=== PATIENT | male | born 1945 | race Caucasian/White ===

== ENCOUNTER 2020-03-25 05:38 | Inpatient (IN) | payer MEDICARE, BC ==
[2020-03-25] VITALS (15 sets, daily range): BP systolic 110–128; BP diastolic 33–74
[~2020-03-25] VITALS: Ht 175.3 cm; Wt 73.9 kg
[~2020-03-25 05:38] MED LIST: KEPPRA1000 MG ORAL; RAPAFLO8 MG ORAL; SYNTHROID150 MCG ORAL
[2020-03-25] MEDS ORDERED: Meperidine 25mg/1ml Inj (FOR RIGORS ONLY) IV PRN (07:30)
[2020-03-25] MEDS ORDERED: Metoclopramide 10mg/2ml Inj IVP PRN (07:30)
[2020-03-25] MEDS ORDERED: LORazepam Inj 2mg/ml 1ml IV PRN (07:30)
[2020-03-25] MEDS ORDERED: HYDROcodone/Acetamin 7.5/325 tab ORAL PRN (07:30)
[2020-03-25] MEDS ORDERED: Labetalol 5mg/ml 20ml vial IV PRN (07:30)
[2020-03-25] MEDS ORDERED: Acetaminophen (Non formulary) 100 ML IV ONE (07:30)
[2020-03-25] MEDS ORDERED: HYDROcodone/Acetamin 5/325 tab ORAL PRN (07:30)
[2020-03-25] MEDS ORDERED: Atropine Sulfate 0.4mg/ml inj IVP PRN (07:30)
[2020-03-25] MEDS ORDERED: oxyCODONE HCL/Acetaminophen 5/325mg ORAL PRN (07:30)
[2020-03-25] MEDS ORDERED: Midazolam 2mg/2ml Inj IVP PRN (07:30)
[2020-03-25] MEDS ORDERED: fentaNYL 100 mcg/2 mL IV PRN (07:30)
[2020-03-25] MEDS ORDERED: Ketorolac 30mg Inj IV PRN ×2 (07:30)
[2020-03-25] MEDS ORDERED: Sterile Water Irrig 1000ml IRRIG ONE (07:30)
[2020-03-25] MEDS ORDERED: LR 1000ml 1,000 ML IVLG SCH (07:30)
[2020-03-25] MEDS ORDERED: LR 1000ml ONE (07:30)
[2020-03-25] MEDS ORDERED: DiphenhydrAMINE 50mg/ml Inj IVP PRN (07:30)
--- NOTE | 2020-03-25 07:31 | Anethesia Preoperative Eval ---
Anesthesia Pre-op PMH/ROS General Date of Evaluation: Mar 25, 2020 Time of Evaluation: 07:21 Anesthesiologist: Kylie ASA Score: ASA 3 Mallampati Score Class I : Soft palate, uvula, fauces, pillars visible Class II: Soft palate, uvula, fauces visible Class III: Soft palate, base of uvula visible Class IV: Only hard plate visible Mallampati Classification: Class II Surgeon: Shania Diagnosis: R Kidney Pain Surgical Procedure: R Lparoscopic Nephrectomy Anesthesia History: none Family History: no anesthesia problems Allergies: Coded Allergies: No Known Allergies (Unverified , 03/25/20) Medications: see eMAR Patient NPO?: Yes Past Medical History Neurologic/Psychiatric: Reports: other - Seizures Endocrine: Reports: hypothyroidism Hematology/Immune: Reports: other - Lung CA PSxH Narrative: R and L Lobectomy Anesthesia Pre-op Phys. Exam Physician Exam Last Vital Signs Date Time Temp Pulse Resp B/P (MAP) Pulse Ox O2 Delivery O2 Flow Rate FiO2 03/25/20 06:09 97.0 76 20 123/74 97 Room Air Constitutional: NAD Neurologic: CN 2-12 intact Cardiovascular: RRR Respiratory: CTA Gastrointestinal: S/NT/ND Airway Exam Mallampati Score: Class II MO: full ROM: limited Teeth: missing, intact Anesthesia Pre-op A/P Risk Assessment & Plan Assessment: ASA 3 Plan: GA, SED, GlideScope Status Change Before Surgery: No Pre-Antibiotics Dru Gram Ancef IV Given Within 1 Hr of Incision: Yes Time Given: 07:46 Jovan Espinal MD Mar 25, 2020 07:31
[2020-03-25] MEDS ORDERED: Bupivacaine 0.5% Inj 30 ml vial INJ ONE (07:33)
[2020-03-25] MEDS ORDERED: Sodium Chloride 10ml vial INJ ONE (07:33)
[2020-03-25] MEDS ORDERED: Ketamine 500mg/10ml vial ONE (07:34)
--- NOTE | 2020-03-25 07:35 | Pre-Procedure Note/Attestation ---
Pre-Procedure Note/Attestation Complete Prior to Procedure Planned Procedure: left Procedure Narrative: Right Partial Nephrectomy Laparoscopic Indications for Procedure Pre-Operative Diagnosis: Right renal mass Attestation I attest that I discussed the nature of the procedure; its benefits; risks and complications; and alternatives (and the risks and benefits of such alternatives), prior to the procedure, with the patient (or the patient's legal advertising account representative). I attest that, if there was a reasonable possibility of needing a blood transfusion, the patient (or the patient's legal advertising account representative) was given the [facility] standardized written summary, pursuant to the [place] Blood Safety Act ([place] Health and Safety Code # 1645, as amended). I attest that I re-evaluated the patient just prior to the surgery and that there has been no change in the patient's H&P, except as documented below: Ricci Jauregui MD Mar 25, 2020 07:35
[2020-03-25] MEDS ORDERED: NS Irrig 1000ml IRRIG ONE (08:22)
--- NOTE | 2020-03-25 08:36 | Immediate Post-Op Evaluation ---
Immediate Post-Op Evalulation Immediate Post-Op Evalulation Procedure: R Laparoscopic Partial Nephrectomy Date of Evaluation: Mar 25, 2020 Time of Evaluation: 10:47 IV Fluids: 1000 LR Blood Products: 0 Estimated Blood Loss: 1000 Urinary Output: 200 Blood Pressure Systolic: 124 Blood Pressure Diastolic: 64 Pulse Rate: 96 Respiratory Rate: 18 O2 Sat by Pulse Oximetry: 100 Temperature (Fahrenheit): 97.6 Pain Score (1-10): 2 Nausea: No Vomiting: No Complications 0 Patient Status: awake, reacts, patent, extubated, none Hydration Status: adequate Dru Gram Ancef IV Given Within 1 Hr of Incision: Yes Time Given: 07:46 Jovan Espinal MD Mar 25, 2020 08:36
[2020-03-25] MEDS ORDERED: Neostigmine 1mg/ml 10ml Inj ONE (08:43)
[2020-03-25] MEDS ORDERED: Glycopyrrolate 0.2mg/ml 1ml Vial ONE (08:43)
[2020-03-25] MEDS ORDERED: ceFAZolin sod 1 GM in NS 55 ML IVPB ONE (09:00)
--- NOTE | 2020-03-25 10:17 | Brief Operative Note ---
Immediate Post Operative Note Operative Note Pre-op Diagnosis: Right renal mass Procedure: Right partial nephrectomy Post-op Diagnosis: same Post-op Diagnosis: same as pre-op Surgeon: Richard jauregui Director Immunology: tracy faulkner Anesthesia: general Specimen: yes Complications: none Condition: stable Fluids: 1000 Estimated Blood Loss: minimal Implant(s) used?: No Ricci Jauregui MD Mar 25, 2020 10:17
[2020-03-25] MEDS: Hydromorphone 0.5mg/0.5ml inj IVP PRN ×2 (10:52→11:20)
[2020-03-25 11:02] LABS: HEMOGLOBIN 11.5 G/DL (14.2-18.0); MEAN CORPUSCULAR VOLUME 98 FL (80-99); PLATELET COUNT 225 K/UL (150-450); RED BLOOD COUNT 3.58 M/UL (4.70-6.10); RED CELL DISTRIBUTION WIDTH 13.6 % (11.6-14.8); WHITE BLOOD COUNT 21.9 K/UL (4.8-10.8)
[2020-03-25 11:08] LABS: CALCIUM 8.5 MG/DL (8.5-10.1); CREATININE 1.4 MG/DL (0.55-1.30); POTASSIUM 4.1 MMOL/L (3.5-5.1)
--- NOTE | 2020-03-25 12:05 | NUR ---
NURSE NOTES: Patient received from PACU via bed to room 411-1 on O2 3LNC, in stable condition, sleeping, awakens easily, then falls asleep. Report from Aileen BINGHAM. Oriented patient to room, medical equipment and call light. Abdomen x4 areas with steri strips, CDI. FC in place, patent, y/cl urine. NPO, ice chips provided. IV (LR ) to , site asymptomatic. Bilateral SCDs on. Belongings reviewed with Mark BINGHAM. Signs placed above HOB (DO NOT DC MORTENSEN and NOTHING PER RECTUM). Called RT for IS. Call light in reach, bed in lowest position, will continue to monitor.
--- NOTE | 2020-03-25 13:00 | NUR ---
NURSE NOTES: Seizure pads applied to siderails x2.
[2020-03-25] MEDS: HYDROmorphone 1mg/ml Carpuject IVP PRN ×2 (13:57→18:54)
--- NOTE | 2020-03-25 14:00 | NUR ---
NURSE NOTES: Dr. Jauregui at bedside, orders for patient to remain on bedrest for today, then PT evaluation tomorrow.Will follow as ordered.
[2020-03-25] MEDS: D5 1/2NS w/KCl 20mEq 1,000 ML IV SCH ×2 (14:13→23:49)
[2020-03-25] MEDS ORDERED: ceFAZolin sod 2 GM in D5W 110 ML IV SCH (15:30)
[2020-03-25] MEDS: ceFAZolin 2gm/D5W 50ml Premix IV SCH ×2 (15:53→23:49)
--- NOTE | 2020-03-25 17:45 | NUR ---
NURSE NOTES: Received call from Dr. Jauregui, home medications reconciled, orders to start RAPAFLO tonight only, then resume all other home medications (KEPPRA/SYNTHROID) tomorrow. Will follow as ordered. Addendum: 03/25/20 at 1902 by Clair Mcgregor RN Reviewed post op lab results with Dr. Jauregui.
--- NOTE | 2020-03-25 18:45 | NUR ---
NURSE NOTES: Instructed/demonstrated on IS, returns demonstration correctly, able to inspire [address] Jauregui notified of urine output (FC) 250 ml. No further orders.
[2020-03-25] MEDS: Docusate 100mg cap ORAL SCH (18:48)
--- NOTE | 2020-03-25 19:34 | NUR ---
NURSE HAND-OFF: Important Events on Shift:POST OP at 1205, Remain on BR for today, Only resume RAPAFLO tonight, NPO, monitor neumann output (Dr. Jauregui aware, 250 ml) Patient Status: stable Diet: NPO (ice chips/sips with meds) Pending Orders: Labs AM Pending Results/Labs:CBC BMP 03/26 Pending MD notification:none Latest Vital Signs: Temperature 97.1 , Pulse 98 , B/P 117 /66 , Respiratory Rate 16 , O2 SAT 99 , Nasal Cannula, O2 Flow Rate 3 . Vital Sign Comment: none Latest Pacheco Fall Score: 35 Fall Risk: Medium Risk Safety Measures: Call light Within Reach, Bed Alarm , Side Rails Side Rails x2, Bed position Low and Locked. Fall Precautions: Yellow Socks Door Sign Patient Fall Education Report given to Sangeeta BINGHAM. Addendum: 03/25/20 at 2001 by Clair Mcgregor RN Medicated with Dilaudid 1 mg x2.
--- NOTE | 2020-03-25 19:37 | NUR ---
NURSE NOTES: Received report & pt from ZACHERY Mercedes. Pt in bed, a&xo4, on O2 vi NC @ 3LPM. No s/s of acute distress & c/o 7/10 pain at this time. Will give PRN pain med when due & pt verbalized understanding. Neumann intact. Do not D/C neumann & nothing per rectum signs on. IV site intact with IVF running as ordered. Bed in lowest position, call light within reach. Will continue to monitor.
[2020-03-25] MEDS ORDERED: Tamsulosin 0.4mg cap ORAL SCH (21:00)
[2020-03-26] VITALS (7 sets, daily range): BP systolic 110–149; BP diastolic 56–72
--- NOTE | 2020-03-26 | NUR ---
NURSE NOTES: Pt in no acute distress. Titrated O2 to 1LPM via NC since current SpO2 is 99%. Will continue to monitor.
[2020-03-26] MEDS: HYDROmorphone 1mg/ml Carpuject IVP PRN ×3 (05:07→13:08)
--- NOTE | 2020-03-26 06:09 | NUR ---
NURSE NOTES: Updated Dr. Jauregui with pt's current status re: Pt states he is able to sleep well with the sleeping pill given last night. Gave pain medication dilaudid for 8/10 pain when not moving; will reassess. Urine output via f/c is 700ml clear yellow output. Received new order for Ancef 1g Q8HR. Order entered.
[2020-03-26 06:31] LABS: BASOPHILS % (AUTO) 0.5 % (0.0-2.0); HEMATOCRIT 27.7 % (42.0-52.0); HEMOGLOBIN 9.3 G/DL (14.2-18.0); LYMPHOCYTES % (AUTO) 11.2 % (20.0-45.0); MEAN CORPUSCULAR VOLUME 97 FL (80-99); MONOCYTES % (AUTO) 12.4 % (1.0-10.0); NEUTROPHILS % (AUTO) 75.9 % (45.0-75.0); PLATELET COUNT 188 K/UL (150-450); RED BLOOD COUNT 2.86 M/UL (4.70-6.10); RED CELL DISTRIBUTION WIDTH 13.4 % (11.6-14.8); WHITE BLOOD COUNT 13.3 K/UL (4.8-10.8)
--- NOTE | 2020-03-26 06:38 | NUR ---
NURSE HAND-OFF: Important Events on Shift:pain management, iv hydration, neumann output 700cc, new order for restoril Patient Status: stable Diet: NPO Pending Orders: PT eval today Pending Results/Labs:none Pending MD notification: Latest Vital Signs: Temperature 98.7 , Pulse 84 , B/P 115 /57 , Respiratory Rate 17 , O2 SAT 98 , Nasal Cannula, O2 Flow Rate 3.0 . Vital Sign Comment: none Latest Pacheco Fall Score: 35 Fall Risk: Medium Risk Safety Measures: Call light Within Reach, Bed Alarm , Side Rails Side Rails x2, Bed position Low and Locked. Fall Precautions: Yellow Socks Door Sign Patient Fall Education Report given to ZACHERY Self.
[2020-03-26 07:04] LABS: CALCIUM 8.2 MG/DL (8.5-10.1); CREATININE 1.7 MG/DL (0.55-1.30); POTASSIUM 4.5 MMOL/L (3.5-5.1)
--- NOTE | 2020-03-26 07:20 | NUR ---
NURSE NOTES: Report received from Sangeeta BINGHAM, rounds made. Patient resting in semi-fowlers position in bed. AOx4, calm. On RA, respirations even, unlabored. IVF D5 1/2 +20 KCL at 100 ml/hr to LH, site asymptomatic. Abdominal dressing, remains unchanged, x4 steri-strips, CDI, abdomen soft, flat. Denies need for pain medication at this time. Instructed patient to use IS with pillow to abdomen to splint surgical sites, verbalized understanding. Seizure pads in place. FC patent y/cl urine to gravity. Bilateral SCDs on. Remains NPO, ice chips provided. Plans for PT eval today. Call light in reach, bed in lowest position, will continue to monitor.
[2020-03-26] MEDS: Docusate 100mg cap ORAL SCH ×2 (08:55→18:31)
[2020-03-26] MEDS: D5 1/2NS w/KCl 20mEq 1,000 ML IV SCH ×2 (09:11→20:54)
--- NOTE | 2020-03-26 09:44 | NUR ---
NURSE NOTES: Seen and evaluated by and Enrique removed. Received new order. Order read back and carried out.
--- NOTE | 2020-03-26 10:00 | NUR ---
PT EVALUATION NOTE Patient seen for initial evaluation and treatment initiated. Patient presents with generalized weakness and pain s/p Right partial nephrectomy. Patient requires CGA for bed mobility and transfers. Patient able to ambulate 50 ft with CGA, no AD, slowed pace and guarded. Patient will benefit from skilled inpatient PT intervention to improve level of functional mobility, safety and activity tolerance. Anticipate discharge home once medically cleared by MD. Addendum: 03/26/20 at 1228 by STAN BAEZ PT Amended: Links added.
--- NOTE | 2020-03-26 10:15 | NUR ---
NURSE NOTES: Patient updated on orders for Bolus x1, verbalized understanding. NS 500 ml Bolus started at this time.
--- NOTE | 2020-03-26 10:33 | 48 Hour Post Anesthesia Eval ---
Post Anesthesia Evaluation Procedure: R Laparoscopic Partial Nephrectomy Date of Evaluation: Mar 26, 2020 Time of Evaluation: 10:32 Blood Pressure Systolic: 116 0: 72 Pulse Rate: 68 Respiratory Rate: 20 Temperature (Fahrenheit): 97.6 O2 Sat by Pulse Oximetry: 98 Airway: patent Nausea: No Vomiting: No Pain Intensity: 3 Hydration Status: adequate Cardiopulmonary Status: stable Mental Status/LOC: patient returned to baseline Follow-up Care/Observations: n/a Post-Anesthesia Complications: none Follow-up care needed: N/A Issac Mclain MD Mar 26, 2020 10:33
--- NOTE | 2020-03-26 10:38 | Consultation ---
History of Present Illness General Date patient seen: Mar 26, 2020 Present Illness HPI This is a very pleasant 74-year-old male with a right renal mass status post right partial nephrectomy who in the postoperative period identified to have leukocytosis abdominal discomfort. Surgery called to evaluate assist with care. Patient seen, patient evaluate, chart reviewed. Mild bowel distention abdominal discomfort 4 out of 10 trying not to take pain medications. No flatus no bowel movement yet. Has not been amatory. Nunez in place. Nunez clear. Alert awake oriented x3. No nausea no reflux no vomiting. Otherwise feeling well. Allergies: Coded Allergies: No Known Allergies (Unverified , 03/25/20) COVID-19 Screening Contact w/high risk pt: No Experienced COVID-19 symptoms?: No Medication History Scheduled Levetiracetam (Keppra), 2,000 MG ORAL BID, (Reported) Levothyroxine Sodium* (Synthroid*), 150 MCG ORAL DAILY, (Reported) Silodosin (Rapaflo), 8 MG ORAL DAILY, (Reported) Patient History History Provided By: Patient, Medical Record, PMD Healthcare decision maker Resuscitation status Advanced Directive on File Past Medical/Surgical History Past Medical/Surgical History: (1) Abdominal distention (2) LAPAROSCOPIC RIGHT PARTIAL NEPHRECTOMY Review of Systems Review of Symptoms General ROS: no weight loss or fever Psychological ROS: no depression or mood changes, no memory loss Ophthalmic ROS: no visual changes or eye irritation ENT ROS: no nasal congestion, hearing loss, dizziness Allergy and Immunology ROS: no allergic symptoms or urticaria Hematological and Lymphatic ROS: no swollen glands, unusual bleeding or bruising Endocrine ROS: no polyuria, polydipsia, weight changes, temperature intolerance Respiratory ROS: no cough, shortness of breath, or wheezing Cardiovascular ROS: no chest pain or dyspnea on exertion Gastrointestinal ROS: denies abdominal pain, bright red blood in stool. Musculoskeletal ROS: no myalgias or arthralgias Neurological ROS: no TIA or stroke symptoms Dermatological ROS: no new or changing skin lesions, rashes or pruritis Physical Exam Physical Exam General appearance: alert, cooperative, no distress, appears stated age Head: Normocephalic, without obvious abnormality, atraumatic Eyes: conjunctivae/corneas clear. PERRL, EOM's intact. Fundi benign Throat: Lips, mucosa, and tongue normal. Teeth and gums normal Neck: supple, symmetrical, trachea midline, no adenopathy, thyroid: not enlarged, symmetric, no tenderness/mass/nodules, no carotid bruit and no JVD Lungs: clear to auscultation bilaterally Heart: regular rate and rhythm, S1, S2 normal, no murmur, click, rub or gallop Abdomen: soft, minimal distention bowel gas pattern decreased non-tender. Bowel sounds normal. No masses, no organomegaly Extremities: extremities normal, atraumatic, no cyanosis or edema Pulses: 2+ and symmetric Skin: Skin color, texture, turgor normal. No rashes or lesions Neurologic: Grossly normal Last 24 Hour Vital Signs Date Time Temp Pulse Resp B/P (MAP) Pulse Ox O2 Delivery O2 Flow Rate FiO2 03/26/20 08:00 98.2 94 18 110/58 (75) 97 03/26/20 04:00 98.7 84 17 115/57 (76) 98 03/26/20 00:00 98.2 84 16 110/56 (74) 99 03/25/20 21:00 Nasal Cannula 3.0 03/25/20 20:00 98.5 99 19 117/57 (77) 98 03/25/20 16:00 97.1 98 16 117/66 (83) 99 03/25/20 13:10 97.0 96 16 115/69 (84) 98 03/25/20 12:40 97.8 100 16 115/71 (86) 99 03/25/20 12:22 Nasal Cannula 3.0 03/25/20 12:10 97.4 98 16 115/72 (86) 99 03/25/20 11:50 97.9 92 15 128/56 100 Nasal Cannula 3 03/25/20 11:50 97.9 03/25/20 11:35 91 18 125/52 100 Nasal Cannula 3 03/25/20 11:22 97.9 03/25/20 11:22 97.9 03/25/20 11:20 85 15 127/54 100 Simple Mask 6 03/25/20 11:10 81 19 127/48 100 Simple Mask 6 03/25/20 10:58 75 15 128/52 100 Simple Mask 6 03/25/20 10:48 82 15 121/33 100 Simple Mask 6 03/25/20 10:38 90 14 126/39 100 Simple Mask 6 Intake and Output 03/25/20 03/26/20 19:00 07:00 Intake Total 2400 ml 1100 ml Output Total 1650 ml Balance 750 ml 1100 ml Intake IV Total 2400 ml 1100 ml Output Urine Total 650 ml Estimated Blood Loss 1000 ml # Voids 2 Laboratory Tests Test 03/25/20 10:45 03/26/20 05:20 White Blood Count 21.9 K/UL (4.8-10.8) H 13.3 K/UL (4.8-10.8) H Red Blood Count 3.58 M/UL (4.70-6.10) L 2.86 M/UL (4.70-6.10) L Hemoglobin 11.5 G/DL (14.2-18.0) L 9.3 G/DL (14.2-18.0) L Hematocrit 35.0 % (42.0-52.0) L 27.7 % (42.0-52.0) L Mean Corpuscular Volume 98 FL (80-99) 97 FL (80-99) Mean Corpuscular Hemoglobin 32.1 PG (27.0-31.0) H 32.3 PG (27.0-31.0) H Mean Corpuscular Hemoglobin Concent 32.8 G/DL (32.0-36.0) 33.4 G/DL (32.0-36.0) Red Cell Distribution Width 13.6 % (11.6-14.8) 13.4 % (11.6-14.8) Platelet Count 225 K/UL (150-450) 188 K/UL (150-450) Mean Platelet Volume 6.1 FL (6.5-10.1) L 6.1 FL (6.5-10.1) L Neutrophils (%) (Auto) % (45.0-75.0) 75.9 % (45.0-75.0) H Lymphocytes (%) (Auto) % (20.0-45.0) 11.2 % (20.0-45.0) L Monocytes (%) (Auto) % (1.0-10.0) 12.4 % (1.0-10.0) H Eosinophils (%) (Auto) % (0.0-3.0) 0.0 % (0.0-3.0) Basophils (%) (Auto) % (0.0-2.0) 0.5 % (0.0-2.0) Differential Total Cells Counted 100 Neutrophils % (Manual) 90 % (45-75) H Lymphocytes % (Manual) 8 % (20-45) L Monocytes % (Manual) 2 % (1-10) Eosinophils % (Manual) 0 % (0-3) Basophils % (Manual) 0 % (0-2) Band Neutrophils 0 % (0-8) Platelet Estimate Adequate Platelet Morphology Normal Red Blood Cell Morphology Normal Sodium Level 144 MMOL/L (136-145) 142 MMOL/L (136-145) Potassium Level 4.1 MMOL/L (3.5-5.1) 4.5 MMOL/L (3.5-5.1) Chloride Level 108 MMOL/L (98-107) H 109 MMOL/L (98-107) H Carbon Dioxide Level 26 MMOL/L (21-32) 29 MMOL/L (21-32) Anion Gap 10 mmol/L (5-15) 5 mmol/L (5-15) Blood Urea Nitrogen 20 mg/dL (7-18) H 22 mg/dL (7-18) H Creatinine 1.4 MG/DL (0.55-1.30) H 1.7 MG/DL (0.55-1.30) H Estimat Glomerular Filtration Rate 49.7 mL/min (>60) 39.7 mL/min (>60) Glucose Level 171 MG/DL (74-106) H 144 MG/DL (74-106) H Calcium Level 8.5 MG/DL (8.5-10.1) 8.2 MG/DL (8.5-10.1) L Height (Feet): 5 Height (Inches): 9.00 Weight (Pounds): 163 Medications Current Medications Medications (Trade) Dose Ordered Sig/Reema Route PRN Reason Start Time Stop Time Status Last Admin Dose Admin Acetaminophen (Tylenol) 650 mg Q6H PRN ORAL Mild Pain (Pain Scale 1-3) 03/25/20 13:00 04/24/20 12:59 Cefazolin Sodium 1 gm/Dextrose 55 ml @ 110 mls/hr Q8HR IVPB 03/26/20 14:00 04/02/20 13:59 Dextrose/ Electrolytes 1,000 ml @ 100 mls/hr Q10H IV 03/25/20 14:00 04/24/20 13:59 03/26/20 09:11 Docusate Sodium (Colace) 100 mg TWICE A DAY ORAL 03/25/20 18:00 04/24/20 17:59 03/26/20 08:55 Hydromorphone HCl (Dilaudid) 1 mg Q3H PRN IVP PAIN 4-10 03/25/20 13:00 04/01/20 12:59 03/26/20 05:07 Levetiracetam (Keppra) 1,000 mg Q12HR ORAL 03/26/20 09:00 04/25/20 08:59 03/26/20 08:55 Levothyroxine Sodium (Synthroid) 150 mcg DAILY@0630 ORAL 03/26/20 06:30 04/25/20 06:29 03/26/20 06:17 Ondansetron HCl (Zofran) 4 mg Q6H PRN IVP Nausea & Vomiting 03/25/20 13:00 04/24/20 12:59 Tamsulosin HCl (Flomax) 0.4 mg BEDTIME ORAL 03/25/20 21:00 04/24/20 20:59 03/25/20 21:03 Temazepam (RestoriL) 15 mg HSPRN PRN ORAL Insomnia 03/25/20 21:15 04/01/20 21:14 03/25/20 21:20 Assessment/Plan Problem List: (1) Abdominal distention Assessment & Plan: 74-year-old male status post laparoscopic right partial nephrectomy assisted for right renal mass. Afebrile, hemodynamic stable, leukocytosis identified significant 17 postop now trending down 13. Mild abdominal distention no nausea vomiting. Decreased bowel sounds. Incisions clean dry intact. Minimal erythema no signs of infection or bleeding. Patient has not been ambulatory yet. Using incentive spirometry. Postoperative effect of recent surgery as anticipated. No acute surgical intervention planned. No complication or compromise noted. Patient is safe and stable at this time. Long discussion with the patient the bedside regards to his care and care plan. Will begin with clear liquid diet slow trial. Will work with physical therapy PT OT today ambulation trial gait training. Nunez to stay in place. Postop erative antibiotics. Postoperative prophylaxis. I appreciate Dr. Ricci Jauregui for allowing me participate patient's care and postoperative care planning. No acute surgical intervention planned or identified at this time. will follow with recs thank you ICD Codes: R14.0 - Abdominal distension (gaseous) SNOMED: [id number] (2) LAPAROSCOPIC RIGHT PARTIAL NEPHRECTOMY Britton Kevin Mar 26, 2020 10:38
--- NOTE | 2020-03-26 11:02 | NUR ---
NURSE NOTES: Called pharmacy regarding Dilaudid 1 mg, PRN 0900 AM dose given was noted not saved on eMAR. Added "unscheduled date and time" to eMAR as instructed.
--- NOTE | 2020-03-26 11:26 | NUR ---
NURSE NOTES: Spoke to regarding diet and NPO ordered. Order noted and carried out.
--- NOTE | 2020-03-26 13:14 | NUR ---
NURSE NOTES: Patient complains of left shoulder pain, applied heating pad per patient request.
[2020-03-26] MEDS ORDERED: SYNTHROID100 MCG ORAL (13:15)
[2020-03-26] MEDS ORDERED: LEVETIRACETAM750 MG ORAL (13:15)
[2020-03-26] MEDS: ceFAZolin sod 1 GM in D5W 55 ML IVPB SCH ×2 (14:02→20:55)
--- NOTE | 2020-03-26 15:53 | NUR ---
[employer] FAXED TO Dario Goodman (ph: [phone]) FX : [phone]
--- NOTE | 2020-03-26 16:17 | NUR ---
CASE MANAGEMENT:REVIEW 74 YR OLD MALE HERE FOR ELECTIVE SURGERY SI: RIGHT RENAL MASS 97.0 76 20 123/74 97% ON RA WBC+21.9 H/H-11.5/35.0 BUN+20 CR+1.4 IS: TO SURGERY FOR: RIGHT PARTIAL NEPHRECTOMY IV ANCEF Q8HRS : TO MED/SURG POST OP 03/26/20 SI: POD #1 S/P RT PARTIAL NEPHRECTOMY 97.7 99 19 123/59 98% ON RA BUN+22 CR+1.7 GLUCOSE+144 IS: IV ANCEF Q8HRS IVF@100/HR IV DILAUDID Q3HRS PRN IV PEPCID QHS IV TYLENOL Q8HRS KEPPRA PO Q12 SYNTHROID PO QD FLOMAX PO QHS : MED/SURG STATUS DCP: FROM HOME
--- NOTE | 2020-03-26 16:50 | NUR ---
NURSE NOTES: FC discontinued at [address] Jauregui. First void at 1300, was only 10 ml, yellow urine. Ambulated patient in room, attempted again at 1500 only 25 ml. Performed bladder scan at 1620, [address] Jauregui notified of above. Dr. Jauregui arrived at bedside at 1640, ambulated patient to bathroom, voided 100 ml, then ambulated patient in halls. Orders for Flomax 0.8 mg tonight then 0.4 mg BID starting tomorrow. Will follow as ordered.
[2020-03-26] MEDS: Acetaminophen (Non formulary) 100 ML IV SCH (18:30)
--- NOTE | 2020-03-26 18:30 | NUR ---
NURSE NOTES: Discussed POC with Dr. Kevin, Tylenol IV ordered, per Dr. Kevin for post op pain control, due to high risk for ileus with narcotic use.
--- NOTE | 2020-03-26 18:44 | Operative Note - Dictated ---
DATE OF OPERATION: 03/25/2020 PREOPERATIVE DIAGNOSIS: Right renal mass. POSTOPERATIVE DIAGNOSIS: Right renal mass. OPERATION: Laparoscopic right partial nephrectomy. OPERATED BY: Ricci Jauregui MD. FLATBED TRUCK DRIVER: Alex Yu MD FINDINGS: A 2.5 to 3 cm midpole posterior right renal mass. 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 He currently has recurrence in his left upper thigh, which was treated conservatively and then progressively developed right renal mass, which increased in size from 1.9 to over 3 cm over the course of 6 months. Case was discussed at great length with the oncologist, Dr. Tomlinson and patient himself in terms of conservative watchful waiting versus resection. At that time, decision was made to proceed with resection of the lesion to differentiate recurrence and metastasis from sarcoma versus primary renal tumor. Treatment options were explained to the patient in great length including all potential complications. He signed a consent. DESCRIPTION OF PROCEDURE: He was brought to the operating room, placed in right lateral decubitus position, prepped and draped in standard fashion. Under general anesthesia, a 7 cm infraumbilical incision was made and a hand port was placed into the abdomen. Three additional trocars, two 12s and one 5 mm trocar was placed in standard position. Liver was retracted with a grasper cephalad and retained. The right renal fossa was mobilized and exposed by removing and resecting the adhesions of the ascending colon and kocherizing duodenum. Gerota's fascia was then opened. There were bulks of fat adherent to the kidney. Using sharp and blunt dissection, finally we were able to expose the kidney on both sides and rotate the kidney so we can see posterior side. There was a mass approximately 3 cm in the mid posterior side of the kidney that correlated with CT images. That was resected including the capsule and superficial parenchyma of the kidney and sent for pathologic examination. Pathologist opened and confirmed soft tissue mass. It was difficult to differentiate on the frozen section and we will await permanent section. The kidney was placed backwards. Attempted to additionally resect the adjacent tumor fat. During this dissection, there was bleeding incurred from one of tributaries of the renal vein, which was first clipped and then [id number] sutures of 4-0 Prolene was placed and bleeding was controlled. Further inspection of the kidney showed no evidence of tumors. Surgicel and FloSeal was placed at the area of the adrenal and also areas of collateral vessels and no bleeding was confirmed. Peritoneum was deflated and inflated several times to make sure that there was no active bleeding. After that, all the sponge and counts were removed and the sponge count and instrument count was correct. Fascia was closed with running 0 Vicryl suture, subcuticular closure of all the ports incisions. Patient tolerated the procedure well. Estimated blood loss was approximately 800 mL. Patient received crystalloids during the procedure and postoperative . Ricci Jauregui M.D. DR: Dash JOB#: [id number] CC:
--- NOTE | 2020-03-26 19:24 | NUR ---
NURSE HAND-OFF: Important Events on Shift:FC discontinued by Dr. Jauregui in AM, Bolus 500 ml, Voiding in small amounts, Bladder scan done 233 ml at 1620, Flomax 0.8 mg tonight, then 0.4 mg BID, Ambulate in halls/room, NPO, Dilaudid 1 mg IV x2, start Pepcid IV tonight, Tylenol IV started (1st dose given), heat compress to left shoulder Patient Status: stable Diet: NPO (ice chips/sips) Pending Orders: labs AM Pending Results/Labs:CBC BMP 03/27 Pending MD notification:none Latest Vital Signs: Temperature 98.3 , Pulse 91 , B/P 113 /72 , Respiratory Rate 19 , O2 SAT 97 , Nasal Cannula, O2 Flow Rate 3.0 . Vital Sign Comment: none Latest Pacheco Fall Score: 35 Fall Risk: Medium Risk Safety Measures: Call light Within Reach, Bed Alarm , Side Rails Side Rails x2, Bed position Low and Locked. Fall Precautions: Yellow Socks Door Sign Patient Fall Education Report given to Angie BINGHAM.
--- NOTE | 2020-03-26 20:35 | NUR ---
NURSE NOTES: Received patient awake, alert, verbal, resting in bed, comfortable, uses urinal.
[2020-03-26] MEDS ORDERED: Tamsulosin 0.4mg cap ORAL SCH (21:00)
[2020-03-27] VITALS (11 sets, daily range): BP systolic 120–148; BP diastolic 52–72
[2020-03-27] MEDS: Acetaminophen (Non formulary) 100 ML IV SCH ×2 (02:05→10:16)
[2020-03-27] MEDS: HYDROmorphone 1mg/ml Carpuject IVP PRN ×2 (03:05→16:06)
[2020-03-27] MEDS: ceFAZolin sod 1 GM in D5W 55 ML IVPB SCH ×3 (05:00→20:58)
[2020-03-27] MEDS: D5 1/2NS w/KCl 20mEq 1,000 ML IV SCH ×2 (05:01→16:00)
--- NOTE | 2020-03-27 06:09 | NUR ---
NURSE HAND-OFF: Important Events on Shift:[] Patient Status: []Stable Diet: [] Pending Orders: [] Pending Results/Labs:[] Pending MD notification:[] Latest Vital Signs: Temperature 98.7 , Pulse 88 , B/P 127 /57 , Respiratory Rate 18 , O2 SAT 96 , Nasal Cannula, O2 Flow Rate 3.0 . Vital Sign Comment: [] Latest Pacheco Fall Score: 35 Fall Risk: Medium Risk Safety Measures: Call light Within Reach, Bed Alarm , Side Rails Side Rails x2, Bed position Low and Locked. Fall Precautions: Yellow Socks Door Sign Patient Fall Education Report given to [].
[2020-03-27 07:07] LABS: HEMATOCRIT 23.3 % (42.0-52.0); HEMOGLOBIN 7.8 G/DL (14.2-18.0); MEAN CORPUSCULAR VOLUME 97 FL (80-99); PLATELET COUNT 161 K/UL (150-450); RED CELL DISTRIBUTION WIDTH 13.5 % (11.6-14.8); WHITE BLOOD COUNT 8.5 K/UL (4.8-10.8)
--- NOTE | 2020-03-27 07:19 | NUR ---
NURSE NOTES: Report received from Nevaeh RN, rounds made. Patient resting in semi-fowlers position in bed. AOx4, calm. On RA, respirations even, unlabored. IVF D5 1/2 +20 KCL at 100 ml/hr to LH, site asymptomatic. Abdominal dressing, remains unchanged, x4 steri-strips, CDI, abdomen soft, flat. BS hypoactive, no gas, no NV. Reinforced patient to use IS with rolled blankets to abdomen to splint surgical sites, verbalized understanding. Complains of left shoulder pain 8/10, wants to wait for Tylenol IV, does not want Dilaudid. Seizure pads in place. Voids in urinal without difficulty. Bilateral SCDs on. Remains NPO, ice chips provided. Call light in reach, bed in lowest position, will continue to monitor.
[2020-03-27 07:38] LABS: CALCIUM 8.2 MG/DL (8.5-10.1); CREATININE 1.5 MG/DL (0.55-1.30); POTASSIUM 4.5 MMOL/L (3.5-5.1)
[2020-03-27] MEDS: Tamsulosin 0.4mg cap ORAL SCH ×2 (08:29→18:40)
[2020-03-27] MEDS: Docusate 100mg cap ORAL SCH ×2 (08:29→18:40)
--- NOTE | 2020-03-27 08:30 | NUR ---
NURSE NOTES: Received call from Dr. Jauregui (spoke to Weston ATKINSON as well), updated on vitals, labs, pain, I&Os, no gas, no distention, left shoulder pain. Orders for T+C 2 Units PRBCs, transfuse 2 Units PRBCs. Will follow as ordered. Addendum: 03/27/20 at 0852 by Clair Mcgregor RN Patient updated on above orders, verbalized understanding.
--- NOTE | 2020-03-27 08:45 | NUR ---
PT NOTE Patient with low Hgb, scheduled to receive blood transfusion. Will defer PT treatment at this time, patient cleared to ambulate with nursing supervision when tolerated, discussed with Clair BINGHAM.
--- NOTE | 2020-03-27 10:25 | NUR ---
NURSE NOTES: Received call from Dr. Jauregui, discussed updates on patient. Orders for Lidocaine patch to left shoulder, ambulate patient gently around room, and to order another HH lab one hour after 2 unit of blood transfused. Will follow as ordered.
--- NOTE | 2020-03-27 11:37 | Surgery Progress Note ---
Surgery Progress Note Subjective Additional Comments wbc improved h/h drop fairly asymptomatic abd discomfort resolving left shoulder pain prbc planned good uop neumann out Objective Last 24 Hour Vital Signs Date Time Temp Pulse Resp B/P (MAP) Pulse Ox O2 Delivery O2 Flow Rate FiO2 03/27/20 08:00 96.6 102 20 135/67 (89) 96 03/27/20 06:12 98.7 03/27/20 04:43 98.7 88 18 127/57 (80) 96 03/27/20 03:35 99.2 03/27/20 02:35 99.2 03/27/20 02:05 99.2 03/27/20 00:01 99.2 03/26/20 23:35 99.2 84 18 124/61 (82) 96 03/26/20 21:32 Room Air 03/26/20 20:38 98.7 97 20 149/58 (88) 97 03/26/20 16:00 98.3 91 19 113/72 (86) 97 03/26/20 12:00 97.7 99 19 123/59 (80) 98 I&O Intake and Output 03/26/20 03/27/20 19:00 07:00 Intake Total 800 ml 910 ml Output Total 410 ml 1200 ml Balance 390 ml -290 ml Intake IV Total 800 ml 910 ml Output Urine Total 410 ml 1200 ml # Voids 4 3 Cardiovascular: RSR Respiratory: clear Abdomen: soft, flat, distended, non-tender, decreased bowel sounds Extremities: no edema, no tenderness, no cyanosis Laboratory Tests Test 03/27/20 05:22 White Blood Count 8.5 K/UL (4.8-10.8) Red Blood Count 2.40 M/UL (4.70-6.10) L Hemoglobin 7.8 G/DL (14.2-18.0) L Hematocrit 23.3 % (42.0-52.0) L Mean Corpuscular Volume 97 FL (80-99) Mean Corpuscular Hemoglobin 32.6 PG (27.0-31.0) H Mean Corpuscular Hemoglobin Concent 33.6 G/DL (32.0-36.0) Red Cell Distribution Width 13.5 % (11.6-14.8) Platelet Count 161 K/UL (150-450) Mean Platelet Volume 6.2 FL (6.5-10.1) L Neutrophils (%) (Auto) % (45.0-75.0) Lymphocytes (%) (Auto) % (20.0-45.0) Monocytes (%) (Auto) % (1.0-10.0) Eosinophils (%) (Auto) % (0.0-3.0) Basophils (%) (Auto) % (0.0-2.0) Differential Total Cells Counted 100 Neutrophils % (Manual) 79 % (45-75) H Lymphocytes % (Manual) 13 % (20-45) L Monocytes % (Manual) 8 % (1-10) Eosinophils % (Manual) 0 % (0-3) Basophils % (Manual) 0 % (0-2) Band Neutrophils 0 % (0-8) Platelet Estimate Adequate Platelet Morphology Normal Hypochromasia 1+ Sodium Level 143 MMOL/L (136-145) Potassium Level 4.5 MMOL/L (3.5-5.1) Chloride Level 108 MMOL/L (98-107) H Carbon Dioxide Level 29 MMOL/L (21-32) Anion Gap 6 mmol/L (5-15) Blood Urea Nitrogen 17 mg/dL (7-18) Creatinine 1.5 MG/DL (0.55-1.30) H Estimat Glomerular Filtration Rate 45.9 mL/min (>60) Glucose Level 117 MG/DL (74-106) H Calcium Level 8.2 MG/DL (8.5-10.1) L Plan Problems: (1) Abdominal distention Assessment & Plan: 74-year-old male status post laparoscopic right partial nephrectomy assisted for right renal mass. Afebrile, hemodynamic stable, leukocytosis identified significant 17 postop now trending down 13. Mild abdominal distention no nausea vomiting. Decreased bowel sounds. Incisions clean dry intact. Minimal erythema no signs of infection or bleeding. Patient has not been ambulatory yet. Using incentive spirometry. Postoperative effect of recent surgery as anticipated. No acute surgical intervention planned. No complication or compromise noted. Patient is safe and stable at this time. Long discussion with the patient the bedside regards to his care and care plan. Will begin with clear liquid diet slow trial. Will work with physical therapy PT OT today ambulation trial gait training. Neumann to stay in place. Postoperative antibiotics. Postoperative prophylaxis. I appreciate Dr. Ricci Jauregui for allowing me participate patient's care and postoperative care planning. No acute surgical intervention planned or identified at this time. will follow with recs thank you npo iv fluids prbc ordered trend labs ambulate and out of bed lidocaine patch for left shoulder (2) LAPAROSCOPIC RIGHT PARTIAL NEPHRECTOMY Britton Kevin Mar 27, 2020 11:37
--- NOTE | 2020-03-27 14:00 | NUR ---
NURSE NOTES: Ancef 1400 dose not given due to blood transfusion.
--- NOTE | 2020-03-27 15:00 | NUR ---
NURSE NOTES: 1st unit PRBCs started at 1205, vitals assessed, stable, completed at 1500, no adverse reaction.
--- NOTE | 2020-03-27 15:10 | NUR ---
CASE MANAGEMENT:REVIEW 03/27/20 SI: POD#2 RIGHT PARTIAL NEPHRECTOMY 96.6 102 20 135/67 96% ON RA H/H-7.8/23.3 CR+1.5 IS: TRANSFUSE PRBC'S IV ANCEF Q8HR IVF@100/HR IV PEPCID QHS LIDOCAINE PATCH QD KEPPRA PO Q12 SYNTHROID PO QD : MED/SURG STATUS DCP: FROM HOME
--- NOTE | 2020-03-27 15:15 | NUR ---
NURSE NOTES: Ambulated patient around room,gently as tolerated, gait steady and slow.
--- NOTE | 2020-03-27 18:00 | NUR ---
NURSE NOTES: 2nd unit PRBCs started at 1650, vitals assessed, stable, still infusing, no adverse reaction. Will endorse to next shift.
--- NOTE | 2020-03-27 19:07 | NUR ---
NURSE HAND-OFF: Important Events on Shift:2units PRBCs(1205 and 1650), second unit still infusing, needs CBC ordered one hour after 2nd unit complete, Dilaudid x1, Lidoderm patch to left shoulder, ambulate patient gently around room Patient Status: stable Diet: NPO (ice/sips) Pending Orders: CBC (need to enter order after 2nd unit PRBCs done) Pending Results/Labs:BMP 03/28 Pending MD notification:none Latest Vital Signs: Temperature 98.6 , Pulse 92 , B/P 136 /71 , Respiratory Rate 16 , O2 SAT 96 , Nasal Cannula, O2 Flow Rate 3.0 . Vital Sign Comment: none Latest Pacheco Fall Score: 35 Fall Risk: Medium Risk Safety Measures: Call light Within Reach, Bed Alarm , Side Rails Side Rails x2, Bed position Low and Locked. Fall Precautions: Yellow Socks Door Sign Patient Fall Education Report given to Angie BINGHAM.
--- NOTE | 2020-03-27 19:51 | NUR ---
NURSE NOTES: Received patient awake, alert, verbal, resting in bed, 2nd unit of PRBC.
[2020-03-27 21:47] LABS: BASOPHILS % (AUTO) 0.8 % (0.0-2.0); HEMATOCRIT 30.2 % (42.0-52.0); HEMOGLOBIN 10.2 G/DL (14.2-18.0); LYMPHOCYTES % (AUTO) 6.7 % (20.0-45.0); MEAN CORPUSCULAR VOLUME 96 FL (80-99); MONOCYTES % (AUTO) 8.9 % (1.0-10.0); NEUTROPHILS % (AUTO) 81.6 % (45.0-75.0); PLATELET COUNT 160 K/UL (150-450); RED BLOOD COUNT 3.16 M/UL (4.70-6.10); RED CELL DISTRIBUTION WIDTH 14.3 % (11.6-14.8); WHITE BLOOD COUNT 11.1 K/UL (4.8-10.8)
--- NOTE | 2020-03-27 22:00 | NUR ---
NURSE NOTES: Left message to the result of stat CBC.
[2020-03-28] MEDS: D5 1/2NS w/KCl 20mEq 1,000 ML IV SCH ×2 (00:06→11:30)
[2020-03-28 04:08] VITALS: BP 125/65
[2020-03-28] MEDS: ceFAZolin sod 1 GM in D5W 55 ML IVPB SCH ×3 (05:33→21:04)
--- NOTE | 2020-03-28 06:15 | NUR ---
NURSE HAND-OFF: Important Events on Shift:[]Unremarkable Patient Status: []Stable Diet: []NPO except meds, ice chips Pending Orders: [] Pending Results/Labs:[] Pending MD notification:[] Latest Vital Signs: Temperature 98.2 , Pulse 76 , B/P 125 /65 , Respiratory Rate 18 , O2 SAT 94 , Nasal Cannula, O2 Flow Rate 3.0 . Vital Sign Comment: [] Latest Pacheco Fall Score: 35 Fall Risk: Medium Risk Safety Measures: Call light Within Reach, Bed Alarm , Side Rails Side Rails x2, Bed position Low and Locked. Fall Precautions: Yellow Socks Door Sign Patient Fall Education Report given to [].
[2020-03-28 06:31] LABS: EOSINOPHILS % (AUTO) 2.6 % (0.0-3.0); HEMATOCRIT 31.2 % (42.0-52.0); HEMOGLOBIN 10.5 G/DL (14.2-18.0); LYMPHOCYTES % (AUTO) 8.1 % (20.0-45.0); MEAN CORPUSCULAR VOLUME 95 FL (80-99); MONOCYTES % (AUTO) 9.3 % (1.0-10.0); NEUTROPHILS % (AUTO) 79.1 % (45.0-75.0); PLATELET COUNT 168 K/UL (150-450); RED BLOOD COUNT 3.26 M/UL (4.70-6.10); RED CELL DISTRIBUTION WIDTH 13.6 % (11.6-14.8); WHITE BLOOD COUNT 8.7 K/UL (4.8-10.8)
[2020-03-28 06:55] LABS: CREATININE 1.3 MG/DL (0.55-1.30); POTASSIUM 4.8 MMOL/L (3.5-5.1)
--- NOTE | 2020-03-28 07:59 | NUR ---
NURSE NOTES: Patient awake and alert and oriented.respirations unlabored.IV fluids infusing as ordered.Patient voiding clear yellow urine Laprascopic x4 noted to abdomen sites are clean. DR Jauregui called this AM and ordered clear liquids.Will monitor.Call light within reach.
[2020-03-28 08:00] VITALS: BP 138/70
--- NOTE | 2020-03-28 09:00 | NUR ---
NURSE NOTES: Spoke to regarding patient and new order received. Order read back and carried out.
[2020-03-28] MEDS: Docusate 100mg cap ORAL SCH ×2 (09:48→18:10)
[2020-03-28] MEDS: Tamsulosin 0.4mg cap ORAL SCH ×2 (09:48→18:10)
--- NOTE | 2020-03-28 10:09 | Surgery Progress Note ---
Surgery Progress Note Subjective Symptoms: improved, voiding well, pain decreased Additional Comments feels better prbc labs improved plan clears today Objective Last 24 Hour Vital Signs Date Time Temp Pulse Resp B/P (MAP) Pulse Ox O2 Delivery O2 Flow Rate FiO2 03/28/20 08:00 98.2 72 18 138/70 (92) 96 03/28/20 04:08 98.2 76 18 125/65 (85) 94 03/27/20 21:30 98.2 03/27/20 20:28 Room Air 03/27/20 20:18 98.2 71 20 128/69 (88) 98 03/27/20 17:45 98.6 92 16 136/71 (92) 96 03/27/20 17:10 98.2 96 18 140/72 (94) 98 03/27/20 16:45 98.2 93 16 144/69 (94) 96 03/27/20 15:00 97.9 89 18 147/69 (95) 96 03/27/20 13:40 98.4 93 18 148/67 (94) 98 03/27/20 12:20 98.1 92 16 121/68 (85) 97 03/27/20 11:55 98.2 92 18 120/69 (86) 96 03/27/20 11:20 98.1 91 20 129/52 (77) 98 I&O Intake and Output 03/27/20 03/28/20 19:00 07:00 Intake Total 800 ml 1010 ml Output Total 500 ml Balance 300 ml 1010 ml Intake IV Total 300 ml 1010 ml Blood Product 500 ml Output Urine Total 500 ml Dressing: dry Wound: clean Cardiovascular: RSR Respiratory: clear Abdomen: soft, flat, non-tender, present bowel sounds, non-distended Extremities: no edema, no tenderness, no cyanosis Laboratory Tests Test 03/27/20 21:40 03/28/20 05:35 White Blood Count 11.1 K/UL (4.8-10.8) H 8.7 K/UL (4.8-10.8) Red Blood Count 3.16 M/UL (4.70-6.10) L 3.26 M/UL (4.70-6.10) L Hemoglobin 10.2 G/DL (14.2-18.0) #L 10.5 G/DL (14.2-18.0) L Hematocrit 30.2 % (42.0-52.0) L 31.2 % (42.0-52.0) L Mean Corpuscular Volume 96 FL (80-99) 95 FL (80-99) Mean Corpuscular Hemoglobin 32.3 PG (27.0-31.0) H 32.2 PG (27.0-31.0) H Mean Corpuscular Hemoglobin Concent 33.7 G/DL (32.0-36.0) 33.8 G/DL (32.0-36.0) Red Cell Distribution Width 14.3 % (11.6-14.8) 13.6 % (11.6-14.8) Platelet Count 160 K/UL (150-450) 168 K/UL (150-450) Mean Platelet Volume 5.4 FL (6.5-10.1) L 6.1 FL (6.5-10.1) L Neutrophils (%) (Auto) 81.6 % (45.0-75.0) H 79.1 % (45.0-75.0) H Lymphocytes (%) (Auto) 6.7 % (20.0-45.0) L 8.1 % (20.0-45.0) L Monocytes (%) (Auto) 8.9 % (1.0-10.0) 9.3 % (1.0-10.0) Eosinophils (%) (Auto) 2.0 % (0.0-3.0) 2.6 % (0.0-3.0) Basophils (%) (Auto) 0.8 % (0.0-2.0) 1.0 % (0.0-2.0) Sodium Level 144 MMOL/L (136-145) Potassium Level 4.8 MMOL/L (3.5-5.1) Chloride Level 109 MMOL/L (98-107) H Carbon Dioxide Level 30 MMOL/L (21-32) Anion Gap 5 mmol/L (5-15) Blood Urea Nitrogen 14 mg/dL (7-18) Creatinine 1.3 MG/DL (0.55-1.30) Estimat Glomerular Filtration Rate 54.1 mL/min (>60) Glucose Level 107 MG/DL (74-106) H Calcium Level 9.0 MG/DL (8.5-10.1) Plan Problems: (1) Abdominal distention Assessment & Plan: 74-year-old male status post laparoscopic right partial nephrectomy assisted for right renal mass. Afebrile, hemodynamic stable, leukocytosis identified significant 17 postop now trending down 13. Mild abdominal distention no nausea vomiting. Decreased bowel sounds. Incisions clean dry intact. Minimal erythema no signs of infection or bleeding. Patient has not been ambulatory yet. Using incentive spirometry. Postoperative effect of recent surgery as anticipated. No acute surgical intervention planned. No complication or compromise noted. Patient is safe and stable at this time. Long discussion with the patient the bedside regards to his care and care plan. Will begin with clear liquid diet slow trial. Will work with physical therapy PT OT today ambulation trial gait training. Nunez to stay in place. Postoperative antibiotics. Postoperative prophylaxis. I appreciate Dr. Ricci Jauregui for allowing me participate patient's care and postoperative care planning. No acute surgical intervention planned or identified at this time. will follow with recs thank you npo iv fluids prbc ordered trend labs ambulate and out of bed lidocaine patch for left shoulder start clears pain improved ambulate pt/ot is (2) LAPAROSCOPIC RIGHT PARTIAL NEPHRECTOMY Britton Kevin Mar 28, 2020 10:09
[2020-03-28 12:00] VITALS: BP 131/52
[2020-03-28] MEDS ORDERED: Tubing IV Secondary IV ONE (12:54)
[2020-03-28] MEDS ORDERED: Tubing Blood Filter IV ONE (12:54)
[2020-03-28] MEDS ORDERED: NS 500ML ONE (12:54)
--- NOTE | 2020-03-28 14:31 | NUR ---
INSURANCE CLINICALS FAXED TO D[facility] Goodman (ph: [phone]) FX : [phone]
[2020-03-28 16:00] VITALS: BP 137/75
--- NOTE | 2020-03-28 19:10 | NUR ---
NURSE NOTES: Received report from ZACHERY Murcia. Pt is in bed, IVF infusing well. Pt is able to ambulate with assist. Bed locked and in lowest position, call light within reach. Will continue to monitor.
--- NOTE | 2020-03-28 19:15 | NUR ---
NURSE HAND-OFF: Andrea BINGHAM Important Events on Shift:[stable Patient Status: [full code.] Diet: [clear liquid], start regular diet 03/29/20 Pending Orders: [] Pending Results/Labs:[] Pending MD notification:[] Latest Vital Signs: Temperature 97.8 , Pulse 88 , B/P 137 /75 , Respiratory Rate 18 , O2 SAT 96 , Nasal Cannula, O2 Flow Rate 3.0 . Vital Sign Comment: [] Latest Pacheco Fall Score: 35 Fall Risk: Medium Risk Safety Measures: Call light Within Reach, Bed Alarm , Side Rails Side Rails x2, Bed position Low and Locked. Fall Precautions: Yellow Socks Door Sign Patient Fall Education Report given to [].
[2020-03-28 20:00] VITALS: BP 108/54
[2020-03-29] VITALS: BP 119/65
[2020-03-29] MEDS: D5 1/2NS w/KCl 20mEq 1,000 ML IV SCH (01:42)
[2020-03-29 04:00] VITALS: BP 109/66
[2020-03-29] MEDS: ceFAZolin sod 1 GM in D5W 55 ML IVPB SCH (05:31)
--- NOTE | 2020-03-29 07:13 | NUR ---
NURSE HAND-OFF: Important Events on Shift: Pt was able to sleep through the night Patient Status: calm Diet: VSS Pending Orders: Pending Results/Labs: Pending MD notification: Latest Vital Signs: Temperature 98.4 , Pulse 78 , B/P 109 /66 , Respiratory Rate 18 , O2 SAT 98 , Nasal Cannula, O2 Flow Rate 3.0 . Vital Sign Comment: VSS Latest Pacheco Fall Score: 35 Fall Risk: Medium Risk Safety Measures: Call light Within Reach, Bed Alarm , Side Rails Side Rails x2, Bed position Low and Locked. Fall Precautions: Yellow Socks Door Sign Patient Fall Education Report given to ZACHERY Rizvi.
--- NOTE | 2020-03-29 07:45 | NUR ---
NURSE NOTES: Received report from Andrea BINGHAM, patient a/a/o 4 laying in bed with no signs of distress or other issues at this time. surgical dressing dry and intact. patient is able to void in urinal. call light within reach, bed in lowest position. side rales up x2. I will f/u as needed.
[2020-03-29 08:00] VITALS: BP 131/62
[2020-03-29 09:37] LABS: EOSINOPHILS % (AUTO) 3.6 % (0.0-3.0); HEMATOCRIT 33.2 % (42.0-52.0); HEMOGLOBIN 11.2 G/DL (14.2-18.0); LYMPHOCYTES % (AUTO) 12.1 % (20.0-45.0); MEAN CORPUSCULAR VOLUME 96 FL (80-99); MONOCYTES % (AUTO) 10.5 % (1.0-10.0); NEUTROPHILS % (AUTO) 72.8 % (45.0-75.0); PLATELET COUNT 202 K/UL (150-450); RED BLOOD COUNT 3.47 M/UL (4.70-6.10); RED CELL DISTRIBUTION WIDTH 13.1 % (11.6-14.8); WHITE BLOOD COUNT 5.6 K/UL (4.8-10.8)
[2020-03-29] MEDS: Docusate 100mg cap ORAL SCH (09:40)
[2020-03-29] MEDS: Tamsulosin 0.4mg cap ORAL SCH (09:40)
[2020-03-29 10:07] LABS: ALBUMIN 2.7 G/DL (3.4-5.0); ALBUMIN/GLOBULIN RATIO 0.6 (1.0-2.7); BILIRUBIN,TOTAL 0.5 MG/DL (0.2-1.0); CALCIUM 9.3 MG/DL (8.5-10.1); CREATININE 1.3 MG/DL (0.55-1.30); POTASSIUM 4.4 MMOL/L (3.5-5.1)
[2020-03-29 12:00] VITALS: BP 131/65
--- NOTE | 2020-03-29 12:25 | Surgery Progress Note ---
Surgery Progress Note Subjective Symptoms: improved, tolerating diet, voiding well, passing flatus, pain decreased Objective Last 24 Hour Vital Signs Date Time Temp Pulse Resp B/P (MAP) Pulse Ox O2 Delivery O2 Flow Rate FiO2 03/29/20 09:00 Room Air 03/29/20 08:00 97.6 85 19 131/62 (85) 96 03/29/20 04:00 98.4 78 18 109/66 (80) 98 03/29/20 00:00 97.3 67 18 119/65 (83) 96 03/28/20 21:00 Room Air 03/28/20 20:00 97.9 88 18 108/54 (72) 97 03/28/20 16:00 97.8 88 18 137/75 (95) 96 I&O Intake and Output 03/28/20 03/29/20 19:00 07:00 Intake Total 1257.5 ml Output Total 1825 ml 600 ml Balance -567.5 ml -600 ml Intake Oral 240 ml IV Total 1017.5 ml Output Urine Total 1825 ml 150 ml Other 450 ml Dressing: dry Wound: clean Cardiovascular: RSR Respiratory: clear Abdomen: soft, flat, non-tender, present bowel sounds, non-distended Extremities: no edema, no tenderness, no cyanosis Laboratory Tests Test 03/29/20 08:10 03/29/20 09:00 White Blood Count 5.6 K/UL (4.8-10.8) Red Blood Count 3.47 M/UL (4.70-6.10) L Hemoglobin 11.2 G/DL (14.2-18.0) L Hematocrit 33.2 % (42.0-52.0) L Mean Corpuscular Volume 96 FL (80-99) Mean Corpuscular Hemoglobin 32.2 PG (27.0-31.0) H Mean Corpuscular Hemoglobin Concent 33.6 G/DL (32.0-36.0) Red Cell Distribution Width 13.1 % (11.6-14.8) Platelet Count 202 K/UL (150-450) Mean Platelet Volume 7.0 FL (6.5-10.1) Neutrophils (%) (Auto) 72.8 % (45.0-75.0) Lymphocytes (%) (Auto) 12.1 % (20.0-45.0) L Monocytes (%) (Auto) 10.5 % (1.0-10.0) H Eosinophils (%) (Auto) 3.6 % (0.0-3.0) H Basophils (%) (Auto) 1.0 % (0.0-2.0) Sodium Level 143 MMOL/L (136-145) Potassium Level 4.4 MMOL/L (3.5-5.1) Chloride Level 107 MMOL/L (98-107) Carbon Dioxide Level 30 MMOL/L (21-32) Anion Gap 6 mmol/L (5-15) Blood Urea Nitrogen 12 mg/dL (7-18) Creatinine 1.3 MG/DL (0.55-1.30) Estimat Glomerular Filtration Rate 54.1 mL/min (>60) Glucose Level 106 MG/DL (74-106) Calcium Level 9.3 MG/DL (8.5-10.1) Total Bilirubin 0.5 MG/DL (0.2-1.0) Aspartate Amino Transf (AST/SGOT) 28 U/L (15-37) Alanine Aminotransferase (ALT/SGPT) 24 U/L (12-78) Alkaline Phosphatase 101 U/L (46-116) Total Protein 6.9 G/DL (6.4-8.2) Albumin 2.7 G/DL (3.4-5.0) L Globulin 4.2 g/dL Albumin/Globulin Ratio 0.6 (1.0-2.7) L Plan Problems: (1) Abdominal distention Assessment & Plan: 74-year-old male status post laparoscopic right partial nephrectomy assisted for right renal mass. Afebrile, hemodynamic stable, leukocytosis identified significant 17 postop now trending down 13. Mild abdominal distention no nausea vomiting. Decreased bowel sounds. Incisions clean dry intact. Minimal erythema no signs of infection or bleeding. Patient has not been ambulatory yet. Using incentive spirometry. Postoperative effect of recent surgery as anticipated. No acute surgical intervention planned. No complication or compromise noted. Patient is safe and stable at this time. Tamiko rodriguez discussion with the patient the bedside regards to his care and care plan. Will begin with clear liquid diet slow trial. Will work with physical therapy PT OT today ambulation trial gait training. Nunez to stay in place. Postoperative antibiotics. Postoperative prophylaxis. I appreciate Dr. Ricci Jauregui for allowing me participate patient's care and postoperative care planning. No acute surgical intervention planned or identified at this time. will follow with recs thank you npo iv fluids prbc ordered trend labs ambulate and out of bed lidocaine patch for left shoulder start clears pain improved ambulate pt/ot is improved d/c today rx written outpatient f/u (2) LAPAROSCOPIC RIGHT PARTIAL NEPHRECTOMY Britton Kevin Mar 29, 2020 12:25
[2020-03-29] MEDS ORDERED: Tylenol #3 tab (300mg/30mg) ORAL SCH (12:30)
[2020-03-29] MEDS ORDERED: FLOMAX0.4 MG ORAL (12:32)
[2020-03-29] MEDS ORDERED: COLACE100 MG ORAL (12:33)
[2020-03-29] MEDS ORDERED: ACETAMINOPHEN-1 EAC1 ORAL (12:33)
--- NOTE | 2020-03-29 13:45 | NUR ---
NURSE NOTES: Received order to d/c home. belongings list and discharge instructions given to the patient. also given prescription, patient stated that he will go to his regular pharmacy to fill out prescription. pt is also aware that needs to call Dr. Jauregui's office to schedule an appointment for next week, RN give office info. patient left the floor with no signs of distress or other issues at this time. patients son will provide transportation. I will f/u as needed.
--- NOTE | 2020-03-31 14:55 | Discharge Summary ---
Discharge Summary Hospital Course Date of Admission Mar 25, 2020 at 12:03 Date of Discharge Mar 29, 2020 at 13:54 Admitting Diagnosis Right renal mass Reason for Hospitalization: elective surgery HPI Roland Zamarripa is a 74 year old male who was admitted on Mar 25, 2020 at 12:03 for Right Renal Mass. Patient admitted for elective surgery. Consultations Dr. Kevin general surgery Procedures s/p 03/25/[address] Jauregui Laparoscopic right partial nephrectomy. Hospital Course status post surgery course of recovery uneventful initially IV fluids s/p perioperative antibiotic incision clean , dry and intact pain management was addressed pain was controlled hemoglobin dropped down to 7.8 post surgery patient undergone transfusion of 2 units of packed red blood cells ; posttransfusion hemoglobin remained stable and prior to discharge hemoglobin 11.2 patient initially was n.p.o. 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 Discharge Medications Continued Medications: Acetaminophen With Codeine (T#3) (Tylenol #3 Tab*) Y Tab 2 TAB ORAL Q6H PRN for For Pain, #20 TAB Docusate Sodium* (Colace*) 100 Mg Capsule 100 MG ORAL BID for constipation, #60 CAP Levetiracetam (Levetiracetam) 750 Mg Tablet 750 MG ORAL TWICE A DAY for SEIZURES, #60 TAB 0 Refills Levothyroxine Sodium* (Synthroid*) 100 Mcg Tablet 100 MCG ORAL DAILY for Thyroid, TAB Take in the morning on an empty stomach, at least 30 minutes before food. Tamsulosin HCl (Flomax) 0.4 Mg Cap.er.24h 0.4 MG ORAL BID for BPH, #60 CAP Discharge Condition Upon Discharge: stable Discharge Vital Signs Last Vital Signs Date Time Temp Pulse Resp B/P (MAP) Pulse Ox O2 Delivery O2 Flow Rate FiO2 03/29/20 13:15 97.3 03/29/20 12:00 75 20 131/65 (87) 96 03/29/20 09:00 Room Air 03/25/20 21:00 3.0 Discharge Disposition Patient was discharged home Discharge Instructions Discharge Instructions Special Instructions I have been assigned to dictate discharge summary for this account. I was not involved in the patient's management. Tamika Ortiz NP Mar 31, 2020 14:55
== END 2020-03-29 13:54 | disposition home or self-care (01) | DRG 657 ==
LOC: SUR 05:38 → 4E 12:03
PROC: 0TB04ZZ Excision of Right Kidney, Percutaneous Endoscopic Approach (ICD-10-PCS; principal; 2020-03-25 07:30)
PROC: 30233N1 Transfusion of Nonautologous Red Blood Cells into Peripheral Vein, Percutaneous Approach (ICD-10-PCS; 2020-03-27)
DX: C79.01 Secondary malignant neoplasm of right kidney and renal pelvis (principal); C79.89 Secondary malignant neoplasm of other specified sites; R71.0 Precipitous drop in hematocrit; Z85.118 Personal history of other malignant neoplasm of bronchus and lung; Z79.899 Other long term (current) drug therapy; E03.9 Hypothyroidism, unspecified; R14.0 Abdominal distension (gaseous)
CPT/HCPCS: 36415; 80048; 80053; 85007; 85025; 86850; 86900; 86901; 86920; J2405; J2710; J7030